=== PATIENT | male | born 1990 | race Caucasian/White ===

== ENCOUNTER 2016-10-11 03:29 | Inpatient (IN) | payer MEDICAID ==
[~2016-10-11] VITALS: Ht 175.3 cm; Wt 71.4 kg
[2016-10-11 04:10] LABS: BASOPHILS % (AUTO) 0.2 % (0.0-2.0); EOSINOPHILS % (AUTO) 0 % (1.0-6.0); HEMATOCRIT 42.9 % (41-53); HEMOGLOBIN 14.1 g/dL (13.5-17.5); LYMPHOCYTES # (AUTO) 0.5 K/uL (1.0-4.8); LYMPHOCYTES % (AUTO) 2.7 % (22.0-44.0); MEAN CORPUSCULAR HEMOGLOBIN 29.8 pg (26.0-34.0); MEAN CORPUSCULAR HGB CONC 32.8 G/dL (31.0-37.0); MEAN CORPUSCULAR VOLUME 91 fL (80-100); MONOCYTES # (AUTO) 0.9 K/uL (0.1-1.0); MONOCYTES % (AUTO) 4.7 % (2.0-9.0); NEUTROPHILS # (AUTO) 18.5 K/uL (1.8-7.7); PLATELET COUNT (AUTO) 262 K/uL (150-450); RED BLOOD CELL COUNT(AUTO) 4.73 MIL/uL (4.50-5.90); RED CELL DISTRIBUTION WIDTH 13.1 % (11.5-14.5); WHITE BLOOD COUNT (AUTO) 20.1 K/uL (4.5-11.0)
[2016-10-11 04:12] LABS: NEUTROPHILS % (AUTO) 92.4 % (40.0-70.0)
[2016-10-11 04:19] LABS: ANION GAP 18 mmol/L (8-16); CALCIUM, TOTAL 9.5 mg/dL (8.8-10.5); CARBON DIOXIDE 21 mmol/L (22-29); CHLORIDE 96 mmol/L (98-107); CREATININE 1.06 mg/dL (0.60-1.30); GLOMERULAR FILTR. RATE CALC > 60 mL/min (>60); POTASSIUM 3.4 mmol/L (3.5-5.1); SODIUM SERUM 135 mmol/L (136-145); UREA NITROGEN, BLOOD 12 mg/dL (7-18)
[2016-10-11 04:25] LABS: ALANINE AMINOTRANSFERASE 88 U/L (12-78); ALBUMIN 4.7 g/dL (3.4-5.0); ASPARTATE AMINOTRANSFERASE 29 U/L (15-37); BILIRUBIN,TOTAL 1.3 mg/dL (0.1-1.0); TOTAL PROTEIN, SERUM 8.5 g/dL (6.4-8.2)
[2016-10-11] MEDS ORDERED: BARIUM SULFATE 0.1% SUSPENSION 450 ML BOTTLE PO ONE (04:45)
[2016-10-11] MEDS ORDERED: HYDROmorphone 2 MG/ML SYRINGE IVP ONE (04:45)
[2016-10-11] MEDS ORDERED: SODIUM CHLORIDE 0.9% 1,000 ML IV ONE ×3 (04:45→13:21)
[2016-10-11] MEDS ORDERED: ONDANSETRON HCL 4 MG/2 ML VIAL IVP ONE (04:45)
[2016-10-11] MEDS ORDERED: IOVERSOL 350 MG/ML 100 ML VIAL ONE (05:59)
[2016-10-11] MEDS ORDERED: SODIUM CHLORIDE 0.9% 100 ML ONE (05:59)
[2016-10-11 07:34] LABS: APPEARANCE,URINE CLEAR (CLEAR); GLUCOSE, URINE (UA) NEGATIVE (NEGATIVE); KETONES,URINE >=80 mg/dL (NEGATIVE); LEUKOCYTE ESTERASE ,URINE NEGATIVE (NEGATIVE); OCCULT BLOOD,URINE TRACE (NEGATIVE); PROTEIN,URINE POS 1+ (NEGATIVE)
[2016-10-11 07:39] LABS: ADD UA MICROSCOPIC YES
[2016-10-11 07:41] LABS: RBC,URINE 0-2 /HPF (0-2); SQUAMOUS EPITHELIAL CELL,UR Few /LPF (None Seen); WBC,URINE 0-2 /HPF (0-5)
[2016-10-11] MEDS ORDERED: MORPHINE SULFATE 4 MG/ML SYRINGE IVP ONE (07:45)
[2016-10-11] MEDS ORDERED: MetroNIDAZOLE 500 MG/NACL 100 ML IV ONE (07:45)
[2016-10-11] MEDS ORDERED: CLINDAMYCIN 900 MG/D5% WATER 50 ML IV ONE (07:45)
[2016-10-11] MEDS ORDERED: MORPHINE SULFATE 4 MG/ML SYRINGE IVP PRN (08:00)
[2016-10-11] MEDS ORDERED: ONDANSETRON HCL 4 MG/2 ML VIAL IVP PRN ×2 (08:00→11:15)
[2016-10-11 09:28] VITALS: BP 121/75
[2016-10-11] MEDS ORDERED: ACETAMINOPHEN 325 MG TABLET PO PRN (11:15)
[2016-10-11] MEDS ORDERED: SODIUM CHLORIDE 0.9% 1,000 ML IV SCH (11:15)
[2016-10-11] MEDS ORDERED: BISACODYL 10 MG RECTAL RECTAL SUPPOSITORY PR PRN (11:15)
[2016-10-11] MEDS ORDERED: MAGNESIUM HYDROXIDE SUSPENSION 30 ML UDCUP PO PRN (11:15)
[2016-10-11] MEDS ORDERED: MORPHINE SULFATE 2 MG/ML SYRINGE IVP PRN (11:15)
[2016-10-11] MEDS ORDERED: ZOLPIDEM TARTRATE 5 MG TABLET PO PRN (11:15)
[2016-10-11] MEDS ORDERED: POTASSIUM CHL 10 MEQ/WATER 50 ML IV PRN (11:45)
[2016-10-11] MEDS ORDERED: POTASSIUM CHLORIDE 20 MEQ ER TABLET PO PRN (11:45)
[2016-10-11] MEDS ORDERED: RINGERS SOLUTION,LACTATED 1,000 ML IV ONE ×2 (11:55→12:00)
[2016-10-11] MEDS ORDERED: SUCCINYLCHOLINE CHLORIDE 20 MG/ML 10 ML VIAL IVP ONE (12:00)
[2016-10-11] MEDS ORDERED: DEXAMETHASONE SOD PHOS 4 MG/ML VIAL IVP ONE (12:00)
[2016-10-11] MEDS ORDERED: ROCURONIUM BROMIDE 10 MG/ML 5 ML VIAL IVP ONE (12:00)
[2016-10-11] MEDS ORDERED: GLYCOPYRROLATE 0.2 MG/ML VIAL IM ONE (12:00)
[2016-10-11] MEDS ORDERED: KETOROLAC TROMETHAMINE 60 MG/2 ML VIAL IM ONE (12:00)
[2016-10-11] MEDS ORDERED: LIDOCAINE HCL/PF 2% 5 ML VIAL INJ ONE (12:00)
[2016-10-11] MEDS ORDERED: PROPOFOL 1% 20 ML VIAL IVP ONE (12:00)
[2016-10-11] MEDS: MetroNIDAZOLE 500 MG/NACL 100 ML IV SCH ×2 (12:19→21:04)
[2016-10-11] MEDS: CIPROFLOXACIN 400 MG/D5% WATER 200 ML IV SCH ×2 (14:07→23:16)
[2016-10-11] MEDS ORDERED: CLINDAMYCIN PHOS 150 MG/ML 4 ML VIAL ONE (15:28)
[2016-10-11] MEDS: BUPIVACAINE 0.25%/EPI 1:200,000/PF 10 ML VIAL ONE ×2 (15:44→15:50)
[2016-10-11] MEDS ORDERED: MEPERIDINE-PF 25 MG/ML SYRINGE IVP PRN (16:00)
[2016-10-11] MEDS ORDERED: FentaNYL CITRATE-PF 100 MCG/2 ML VIAL IVP PRN (16:00)
[2016-10-11] MEDS ORDERED: HYDROmorphone 2 MG/ML SYRINGE IVP PRN (16:00)
[2016-10-11 17:49] VITALS: BP 128/76
[2016-10-11] MEDS: HEPARIN SODIUM,PORCINE 5,000 UNITS/ML VIAL SQ SCH ×2 (17:52→23:16)
[2016-10-11 19:05] VITALS: BP 110/65
[2016-10-11] MEDS ORDERED: OXYGEN THERAPY IH SCH (20:00)
[2016-10-11] MEDS: DOCUSATE SODIUM 100 MG CAPSULE PO SCH (21:04)
[2016-10-11] MEDS: HYDROCODONE/ACETAMINOPHEN 5-325 MG TABLET PO PRN (21:08)
[2016-10-11 23:22] VITALS: BP 117/66
[2016-10-12 04:32] VITALS: BP 111/63
[2016-10-12] MEDS: MetroNIDAZOLE 500 MG/NACL 100 ML IV SCH ×2 (05:06→12:00)
[2016-10-12 07:33] VITALS: BP 112/66
[2016-10-12] MEDS: HYDROCODONE/ACETAMINOPHEN 5-325 MG TABLET PO PRN ×2 (07:52→12:30)
[2016-10-12] MEDS: DOCUSATE SODIUM 100 MG CAPSULE PO SCH (07:52)
[2016-10-12] MEDS: HEPARIN SODIUM,PORCINE 5,000 UNITS/ML VIAL SQ SCH ×2 (07:52→17:07)
[2016-10-12] MEDS ORDERED: PANTOPRAZOLE SODIUM 40 MG DR TABLET PO SCH (09:00)
[2016-10-12] MEDS ORDERED: MIDAZOLAM HCL 2 MG/2 ML VIAL IVP ONE (12:00)
[2016-10-12] MEDS ORDERED: FentaNYL CITRATE-PF 100 MCG/2 ML VIAL IVP ONE (12:00)
[2016-10-12 12:07] VITALS: BP 111/74
[2016-10-12] MEDS: CIPROFLOXACIN 400 MG/D5% WATER 200 ML IV SCH (12:24)
[2016-10-12] MEDS ORDERED: CIPR250S4 PO (13:59)
[2016-10-12] MEDS ORDERED: HYDR-309 PO (13:59)
[2016-10-12] MEDS ORDERED: METR500 PO (13:59)
[2016-10-12] MEDS ORDERED: DSS100 PO (13:59)
[2016-10-12 15:42] VITALS: BP 110/73
== END 2016-10-12 17:50 | disposition home or self-care (01) | DRG 710 ==
LOC: EMS 03:33 → 6N 08:00
PROVIDERS: ADMIT Internal Medicine; ATTEND Internal Medicine
PROC: 0DTJ4ZZ Resection of Appendix, Percutaneous Endoscopic Approach (ICD-10-PCS; principal; 2016-10-11 15:38)
DX: A41.9 Sepsis, unspecified organism (principal); K35.80 Unspecified acute appendicitis; E87.6 Hypokalemia; E86.0 Dehydration; F11.10 Opioid abuse, uncomplicated; F17.210 Nicotine dependence, cigarettes, uncomplicated; F12.10 Cannabis abuse, uncomplicated; F14.10 Cocaine abuse, uncomplicated; Z71.51 Drug abuse counseling and surveillance of drug abuser; Z88.0 Allergy status to penicillin; Z86.11 Personal history of tuberculosis; Z83.79 Family history of other diseases of the digestive system
CPT/HCPCS: 74177; 84132; 87040; 87081; 88304; 96361; 96365; 96368; 96375; 99285; J0330; J0744; J1100; J1170; J1644; J1885; J2250; J2270; J2405; J2704; J3010; J3490; J7030; J7050; J7120; S0077

== ENCOUNTER 2019-06-14 06:23 | Emergency (ER) | payer MEDICAID ==
[~2019-06-14] VITALS: Ht 175.3 cm; Wt 78.2 kg
[~2019-06-14 06:23] MED LIST: CIPR250S4 PO; DSS100 PO; HYDR-309 PO; METR500 PO
[2019-06-14 08:00] VITALS: BP 120/75
== END 2019-06-14 08:03 | disposition home or self-care (01) ==
LOC: EMS 06:26
DX: S93.402A Sprain of unspecified ligament of left ankle, initial encounter (principal); F17.210 Nicotine dependence, cigarettes, uncomplicated; F12.90 Cannabis use, unspecified, uncomplicated; Z88.0 Allergy status to penicillin; X50.1XXA Overexertion from prolonged static or awkward postures, initial encounter; Y93.51 Activity, roller skating (inline) and skateboarding; Y92.89 Other specified places as the place of occurrence of the external cause; Y99.8 Other external cause status
CPT/HCPCS: 99406

== ENCOUNTER 2020-02-07 11:21 | Emergency (ER) | payer MEDICAID ==
[~2020-02-07] VITALS: Ht 175.3 cm; Wt 75.0 kg
[2020-02-07] MEDS ORDERED: IBUP-2070 PO (11:26)
[2020-02-07] MEDS ORDERED: LIDOCAINE 5% TRANSDERMAL PATCH TD ONE (12:45)
[2020-02-07] MEDS ORDERED: METHOCARBAMOL 500 MG TABLET PO ONE (12:45)
[2020-02-07] MEDS ORDERED: KETOROLAC TROMETHAMINE 60 MG/2 ML VIAL IM ONE (12:45)
[2020-02-07 13:31] VITALS: BP 118/75
== END 2020-02-07 13:31 | disposition home or self-care (01) ==
LOC: EMS 11:29
DX: M54.5 Low back pain (principal); F17.210 Nicotine dependence, cigarettes, uncomplicated; F12.90 Cannabis use, unspecified, uncomplicated; Z79.899 Other long term (current) drug therapy
CPT/HCPCS: 96372; 99283; J1885

== ENCOUNTER 2020-08-13 10:08 | Emergency (ER) | payer MEDICAID ==
[~2020-08-13] VITALS: Ht 175.3 cm; Wt 78.2 kg
[~2020-08-13 10:08] MED LIST changes: -CIPR250S4 PO; -DSS100 PO; -HYDR-309 PO; +IBUP-2070 PO; -METR500 PO
[2020-08-13] MEDS ORDERED: FLUORESCEIN SODIUM 1 MG STRIP OD ONE (11:30)
[2020-08-13] MEDS ORDERED: PROPARACAINE HCL 0.5% 15 ML OPHTHALMIC SOLUTION OD ONE (11:30)
[2020-08-13] MEDS ORDERED: PERTUSS(ACELL),DIPH,TET VAC/PF 0.5 ML SYRINGE IM ONE (12:00)
[2020-08-13 12:30] VITALS: BP 121/80
== END 2020-08-13 12:33 | disposition home or self-care (01) ==
LOC: EMS 10:08
DX: S05.01XA Injury of conjunctiva and corneal abrasion without foreign body, right eye, initial encounter (principal); F17.210 Nicotine dependence, cigarettes, uncomplicated; X58.XXXA Exposure to other specified factors, initial encounter; Y93.89 Activity, other specified; Y92.89 Other specified places as the place of occurrence of the external cause; Y99.8 Other external cause status
CPT/HCPCS: 90471; 90715; 99283

== ENCOUNTER 2021-08-24 19:21 | Emergency (ER) | payer MEDICAID ==
[~2021-08-24] VITALS: Ht 175.3 cm; Wt 70.5 kg
[2021-08-24] MEDS ORDERED: PERTUSS(ACELL),DIPH,TET VAC/PF 0.5 ML SYRINGE IM. ONE (20:15)
[2021-08-24] MEDS ORDERED: LIDOCAINE 1%/EPI 1:100,000 30 ML VIAL SQ ONE (20:15)
[2021-08-24 22:47] VITALS: BP 117/77
== END 2021-08-24 23:01 | disposition home or self-care (01) ==
LOC: EMS 19:21
DX: S51.812A Laceration without foreign body of left forearm, initial encounter (principal); Z88.0 Allergy status to penicillin; W26.0XXA Contact with knife, initial encounter; Y93.89 Activity, other specified; Y92.89 Other specified places as the place of occurrence of the external cause; Y99.8 Other external cause status
CPT/HCPCS: 12004; 90471; 90715; 99283; J3490

== ENCOUNTER 2021-09-07 19:03 | Emergency (ER) | payer MEDICAID ==
[~2021-09-07] VITALS: Ht 170.2 cm; Wt 81.8 kg
[2021-09-07 19:04] VITALS: BP 107/64
[2021-09-07] MEDS ORDERED: MUPI1OIN5 TP (19:52)
== END 2021-09-07 20:10 | disposition home or self-care (01) ==
LOC: EMS 19:03
DX: S51.812D Laceration without foreign body of left forearm, subsequent encounter (principal); L08.9 Local infection of the skin and subcutaneous tissue, unspecified; F17.200 Nicotine dependence, unspecified, uncomplicated; F12.90 Cannabis use, unspecified, uncomplicated; Z88.0 Allergy status to penicillin; X58.XXXD Exposure to other specified factors, subsequent encounter
CPT/HCPCS: 99283

== ENCOUNTER 2024-01-23 22:37 | Emergency (ER) | payer MEDICAID ==
[~2024-01-23] VITALS: Ht 175.3 cm; Wt 71.8 kg
[~2024-01-23 22:37] MED LIST changes: -IBUP-2070 PO; +MUPI1OIN5 TP
[2024-01-23 22:45] VITALS: BP 117/71; PULSE 88; RESP 14; TEMP 97.3; O2SAT 96
== END 2024-01-24 00:34 | disposition home or self-care (01) ==
LOC: EMS 22:37
DX: S20.211A Contusion of right front wall of thorax, initial encounter (principal); F12.90 Cannabis use, unspecified, uncomplicated; Z90.49 Acquired absence of other specified parts of digestive tract; Z88.0 Allergy status to penicillin; W19.XXXA Unspecified fall, initial encounter; Y93.89 Activity, other specified; Y92.89 Other specified places as the place of occurrence of the external cause; Y99.8 Other external cause status
CPT/HCPCS: 71100; 71250; 99284; Z7502